=== PATIENT | male | born 1940 | race Caucasian/White ===

== ENCOUNTER → 2017-09-19 | Outpatient (CLI) | payer MEDICARE, BC ==
[~2017-09-19] MED LIST: ASPI325 PO; CYCL0.05OP; FISH1000 PO; LISI20 PO; Lopressor 25 mg25 MG PO; METO25ER PO; MULVITMIND PO; Tambocor100 MG PO; XIIDRA1 EACH OP
[2017-09-19 17:24] LABS: Body Fluid Crystals NEG (NEGATIVE)
[2017-09-19 17:46] LABS: BODY FLUID RBC 0.066 (0-0); RBC Count, Synovial Fluid 66000 /mm3 (0-0); WBC Count, Synovial Fluid 2204 /mm3 (0-180)
[2017-09-19 18:19] LABS: Appearance, Synovial Fluid Bloody (Clear); Color, Synovial Fluid Red (None-P Yel); Lymphs, Synovial Fluid 48 % (0-15); Neutrophils, Synovial Fluid 52 % (0-24)
== END ==
LOC: LAB 16:50 → LAB SHORT 16:50
PROVIDERS: Nurse Practitioner
DX: R22.32 Localized swelling, mass and lump, left upper limb (principal)
CPT/HCPCS: 87070; 87075; 87205; 89051; 89060

== ENCOUNTER → 2018-07-18 | Outpatient (CLI) | payer MEDICARE, BC | END | disposition home or self-care (01) | LOC: LAB 16:52 → LAB SHORT 16:52 | DX: R22.41 Localized swelling, mass and lump, right lower limb (principal); M79.671 Pain in right foot | CPT/HCPCS: 84550 ==

== ENCOUNTER → 2020-02-02 | Outpatient (CLI) | payer MEDICARE, BC | END | disposition home or self-care (01) | LOC: PLD 11:20 → LAB SHORT 11:20 | DX: L82.1 Other seborrheic keratosis (principal) | CPT/HCPCS: 88305 ==

== ENCOUNTER 2021-04-19 08:47 | Day surgery (SDC) | payer MEDICARE, BC ==
[~2021-04-19] VITALS: Ht 172.7 cm; Wt 82.9 kg
[2021-04-19] MEDS ORDERED: ELIQUIS5 M2 (09:26)
[2021-04-19] MEDS ORDERED: MULTAQ400 MG (09:27)
[2021-04-19] MEDS ORDERED: ALLO100 (09:28)
--- NOTE | 2021-04-19 09:39 | NUR ---
04/19/21 0939 Jessica Sands FIRST ATTEMPT MISSED BY MASSIEL IN THE RIGHT FOREARM. SECOND ATTEMPT SUCCESFUL IN THE RIGHT HAND BY LEYLA.
== END 2021-04-19 11:13 | disposition home or self-care (01) ==
LOC: ORSCSDS 08:47
PROVIDERS: Surgery
PROC: 0DJD8ZZ Inspection of Lower Intestinal Tract, Via Natural or Artificial Opening Endoscopic (ICD-10-PCS; principal; 2021-04-19 10:00)
DX: Z12.11 Encounter for screening for malignant neoplasm of colon (principal); I10 Essential (primary) hypertension; E78.5 Hyperlipidemia, unspecified; I48.0 Paroxysmal atrial fibrillation; Z79.01 Long term (current) use of anticoagulants; Z79.899 Other long term (current) drug therapy; Z87.891 Personal history of nicotine dependence
CPT/HCPCS: J2405; J2704; J7120